=== PATIENT | female | born 1990 | race Two or more races ===

== ENCOUNTER 2023-11-30 17:06 | Emergency (ER) | payer OTHER ==
[~2023-11-30] VITALS: Ht 162.6 cm; Wt 62.1 kg
[2023-11-30] MEDS: KETOROLAC TROMETH 30 MG/ML 1ML VIAL IM ONE (18:45)
[2023-11-30 19:40] VITALS: BP 128/76; PULSE 72; RESP 18; TEMP 97.8; O2SAT 100
== END 2023-11-30 19:46 | disposition home or self-care (01) ==
LOC: ER 17:06
DX: S60.132A Contusion of left middle finger with damage to nail, initial encounter (principal); W22.8XXA Striking against or struck by other objects, initial encounter; Y93.89 Activity, other specified; Y92.89 Other specified places as the place of occurrence of the external cause; Y99.0 Civilian activity done for income or pay
CPT/HCPCS: 73140; 96372; 99283; J1885